=== PATIENT | female | born 1970 | race Asian ===

== ENCOUNTER 2017-07-22 13:52 | Outpatient (CLI) | payer OTHER ==
--- NOTE | 2017-07-22 15:03 | MMO ---
BILATERAL DIGITAL SCREENING MAMMOGRAMS: Date: 07/22/17 HISTORY: 47-year-old female presents for digital screening mammogram. COMPARISON: 07/02/16, 03/30/15, 02/10/14. FINDINGS: This patient's mammogram was interpreted with the assistance of computer-aided detection. The breasts are heterogeneously dense, which can lower the sensitivity of mammography. No direct or i ndirect evidence of malignancy. Appearance is stable. Scattered typically benign calcifications. Stab le multiple parenchymal density asymmetries noted bilaterally. IMPRESSION: BIRADS 2: Benign Finding(s) Continue routine screening. POS: NAEL
== END 2017-07-22 13:53 | disposition home or self-care (01) ==
LOC: SCSMAMMO 13:52
PROVIDERS: ATTEND Family Medicine
DX: Z12.31 Encounter for screening mammogram for malignant neoplasm of breast (principal)
CPT/HCPCS: 77067

== ENCOUNTER 2019-05-26 15:25 | Outpatient (CLI) | payer BC ==
--- NOTE | 2019-05-26 15:51 | MMO ---
Bilateral MAMMO Bilat Screen [facility]. CLINICAL HISTORY: Patient is 48 years old and is seen for screening. The patient has no family history of breast cancer. The patient has no personal history of cancer. VIEWS: The views performed were: bilateral craniocaudal with tomosynthesis; bilateral mediolateral oblique with tomosynthesis; and bilateral exaggerated craniocaudal. FILMS COMPARED: The present examination has been compared to prior imaging studies performed at [facility] on 07/02/2016 and 07/22/2017. This study has been interpreted with the assistance of computer-aided detection. MAMMOGRAM FINDINGS: The breasts are extremely dense, which may lower the sensitivity of mammography. There are stable benign appearing calcifications seen in both breasts. There are no suspicious masses, suspicious calcifications, or new areas of architectural distortion. IMPRESSION: THERE IS NO MAMMOGRAPHIC EVIDENCE OF MALIGNANCY. A ROUTINE FOLLOW-UP MAMMOGRAM IN 1 YEAR IS RECOMMENDED. THE RESULTS OF THIS EXAM WERE SENT TO THE PATIENT. ACR BI-RADS Category 2 - Benign finding MAMMOGRAPHY NOTE: 1. A negative mammogram report should not delay a biopsy if a dominant of clinically suspicious mass is present. 2. Approximately 10% to 15% of breast cancers are not detected by mammography. 3. Adenosis and dense breasts may obscure an underlying neoplasm. Reported by: JAMIE ORDONEZ MD Electonically Signed: [id number]
--- NOTE | 2019-05-26 16:26 | ULT ---
Thyroid ultrasound: 05/26/2019 COMPARISON: None HISTORY: Thyroid nodule TECHNIQUE: Multiplanar grayscale sonographic imaging of the thyroid gland obtained. FINDINGS: The thyroid isthmus measures 4 mm in AP dimension. The right lobe measures 5.1 x 1.9 x 2.0 cm and the left lobe measures 3.5 x 1.2 x 1.5 cm. There is a solid heterogeneously hypoechoic dominant nodule within the right lobe measuring 3.4 x 2.0 x 2.3 cm. A tiny 4 mm nodule is noted within the lateral aspect of the left lobe. IMPRESSION: TI-RADS category 4-moderately suspicious. Recommend fine needle aspiration of the dominan t right thyroid lesion given size greater than 1.5 cm.
== END 2019-05-26 15:26 | disposition home or self-care (01) ==
LOC: BICMAMMO 15:25
PROVIDERS: ATTEND Family Medicine
DX: Z12.31 Encounter for screening mammogram for malignant neoplasm of breast (principal); Z00.00 Encounter for general adult medical examination without abnormal findings; E04.1 Nontoxic single thyroid nodule; E07.89 Other specified disorders of thyroid
CPT/HCPCS: 76536; 77063; 77067